=== PATIENT | female | born 1980 | race Caucasian/White ===

== ENCOUNTER 2017-07-08 11:18 | Emergency (ER) | payer MEDICAID ==
[~2017-07-08] VITALS: Ht 170.2 cm; Wt 103.8 kg
[~2017-07-08 11:18] MED LIST: IBUP600 PO; OXYC1SOL5 PO; PRENCAP10 PO; ZOLO50TA PO
[2017-07-08 11:30] VITALS: BP 141/75; PULSE 69; RESP 16; TEMP 97.9; O2SAT 99
[2017-07-08] MEDS ORDERED: SODIUM CHLOR 0.9% 1000 ML INJ 1,000 ML IV SCH (11:43)
[2017-07-08] MEDS ORDERED: ONDANSETRON HCL 4 MG/2 ML VIAL IVP ONE (11:45)
--- NOTE | 2017-07-08 11:46 | PD ---
HPI Chief Complaint: GI Complaint Time Seen by Provider: 11:35 Travel History International Travel<30 days: No Contact w/Intl Traveler<30days: No Traveled to known affect area: No History of Present Illness HPI Examined in the presence of a female nurse. 37-year-old female presents for evaluation of abdominal pain, nausea and vomiting. For the past month she has had intermittent right upper quadrant abdominal pain with associated nausea, discomfort to the right posterior scapular region. She describes it as sharp pain which seems to be worse when eating fatty foods. For example, 2 days ago was her birthday and she consumed a large amount of fatty foods and her pain worsened yesterday. She reports one episode of vomiting yesterday. She reports chronically irregular stools. She reports some dysuria over the past few days. Denies flank pain, fevers, chest pain or shortness of breath. She does report that approximately 10 years ago she was told that she had gallstones. Her primary care physician is Dr. Pardo. No other complaints. [facility] Past Medical History Depression: Yes ?: Not LMP: LAST WEEK Social History Alcohol Use: No Tobacco Use: No Substance Use: No Allergies-Medications (Allergen,Severity, Reaction): Coded Allergies: Sulfa (Sulfonamide Antibiotics) (Unverified Allergy, Mild, NAUSEA, ) erythromycin base (Unverified Allergy, Mild, HIVES, 07/08/17) penicillin G (Unverified Allergy, Mild, HIVES, 07/08/17) Reported Meds & Prescriptions Reported Meds & Active Scripts Active Zofran (Ondansetron HCl) 4 Mg Tab 4 Mg PO Q6HR PRN Review of Systems Except as stated in HPI: all other systems reviewed are Neg Physical Exam Narrative GENERAL: Well-developed well-nourished female in no acute distress SKIN: Warm and dry. HEAD: Atraumatic. Normocephalic. EYES: Pupils equal and round. No scleral icterus. No injection or drainage. ENT: No nasal bleeding or discharge. Mucous membranes pink and moist. NECK: Trachea midline. No JVD. CARDIOVASCULAR: Regular rate and rhythm. No murmur appreciated. RESPIRATORY: No accessory muscle use. Clear to auscultation. Breath sounds equal bilaterally. GASTROINTESTINAL: Abdomen soft, mild right upper quadrant tenderness without guarding, no CVA tenderness MUSCULOSKELETAL: No obvious deformities. No clubbing. No cyanosis. No edema. NEUROLOGICAL: Awake and alert. No obvious cranial nerve deficits. Motor grossly within normal limits. Normal speech. PSYCHIATRIC: Appropriate mood and affect; insight and judgment normal. Data Data Last Documented VS Vital Signs Date Time Temp Pulse Resp B/P (MAP) Pulse Ox O2 Delivery O2 Flow Rate FiO2 07/08/17 12:30 58 18 146/72 (96) 100 Room Air 07/08/17 11:30 97.9 Orders Orders Complete Blood Count With Diff (07/08/17 11:43) Comprehensive Metabolic Panel (07/08/17 11:43) Lipase (07/08/17 11:43) Urinalysis - C+S If Indicated (07/08/17 11:43) Us Abdomen Gallbladder (07/08/17 ) Iv Access Insert/Monitor (07/08/17 11:43) Ondansetron Inj (Zofran Inj) (07/08/17 11:45) Sodium Chlor 0.9% 1000 Ml Inj (Ns 1000 M (07/08/17 11:43) Ed Urine Pregnancytest Poc (07/08/17 11:43) Ed Discharge Order (07/08/17 13:21) Labs Laboratory Tests Test 07/08/17 11:45 07/08/17 11:50 Urine Collection Type CLEAN CATCH Urine Color YELLOW Urine Turbidity CLEAR Urine pH 8.0 Urine Specific Neeses 1.009 Urine Protein NEG mg/dL Urine Glucose (UA) NEG mg/dL Urine Ketones NEG mg/dL Urine Occult Blood NEG Urine Nitrite NEG Urine Bilirubin NEG Urine Leukocyte Esterase NEG Urine Squamous Epithelial Cells 0-5 /hpf Microscopic Urinalysis Comment CULT NOT INDICATED White Blood Count 6.2 TH/MM3 Red Blood Count 5.00 MIL/MM3 Hemoglobin 13.6 GM/DL Hematocrit 40.8 % Mean Corpuscular Volume 81.6 FL Mean Corpuscular Hemoglobin 27.2 PG Mean Corpuscular Hemoglobin Concent 33.4 % Red Cell Distribution Width 12.4 % Platelet Count 254 TH/MM3 Mean Platelet Volume 8.4 FL Neutrophils (%) (Auto) 66.4 % Lymphocytes (%) (Auto) 24.0 % Monocytes (%) (Auto) 6.5 % Eosinophils (%) (Auto) 1.9 % Basophils (%) (Auto) 1.2 % Neutrophils # (Auto) 4.1 TH/MM3 Lymphocytes # (Auto) 1.5 TH/MM3 Monocytes # (Auto) 0.4 TH/MM3 Eosinophils # (Auto) 0.1 TH/MM3 Basophils # (Auto) 0.1 TH/MM3 CBC Comment DIFF FINAL Differential Comment Blood Urea Nitrogen 9 MG/DL Creatinine 0.77 MG/DL Random Glucose 97 MG/DL Total Protein 7.5 GM/DL Albumin 3.9 GM/DL Calcium Level 8.7 MG/DL Alkaline Phosphatase 56 U/L Aspartate Amino Transf (AST/SGOT) 14 U/L Alanine Aminotransferase (ALT/SGPT) 23 U/L Total Bilirubin 0.5 MG/DL Sodium Level 137 MEQ/L Potassium Level 3.7 MEQ/L Chloride Level 102 MEQ/L Carbon Dioxide Level 26.0 MEQ/L Anion Gap 9 MEQ/L Estimat Glomerular Filtration Rate 84 ML/MIN Lipase 208 U/L MDM Medical Decision Making Medical Screen Exam Complete: Yes Emergency Medical Condition: Yes Medical Record Reviewed: Yes Differential Diagnosis Biliary colic, cholecystitis, pyelonephritis, ureteral stone, cystitis, pancreatitis, colitis Narrative Course 37-year-old female with intermittent right upper quadrant abdominal pain, right scapular pain, nausea for the past month. Symptoms seem to be worse with the consumption of fatty foods. On examination she is very mild right upper quadrant/epigastric tenderness. Plan for basic lab work, right upper quadrant ultrasound. She will be given IV fluids, Zofran. Her lab work and imaging studies been reviewed and found to be unremarkable. At this point, the plan would be to discharge the patient with a short course of antiemetics, have her follow up with her primary care physician, likely gastroenterology referral. She is stable for discharge. Diagnosis Primary Impression: Abdominal pain Qualified Codes: R10.9 - Unspecified abdominal pain Additional Instructions: Zofran for nausea. Stay well hydrated well-nourished. Avoid fatty and fried foods. Follow up close with primary care physician. Return for any emergent medical conditions. Med/Other Pt SpecificInfo: Prescription(s) given Scripts Ondansetron (Zofran) 4 Mg Tab 4 MG PO Q6HR Y for NAUSEA OR VOMITING, #20 TAB 0 Refills Prov: Colette Parker MD 07/08/17 Disposition: 01 DISCHARGE HOME Condition: Stable Gabriel Plasencia Jul 08, 2017 11:46
[2017-07-08 11:59] LABS: AUTOMATED NEUTROPHIL # 4.1 TH/MM3 (1.8-7.7); BASOPHIL # 0.1 TH/MM3 (0-0.2); BASOPHIL % 1.2 % (0.0-2.0); EOSINOPHIL # 0.1 TH/MM3 (0-0.4); EOSINOPHIL % 1.9 % (0.0-4.0); HEMATOCRIT 40.8 % (35.0-46.0); HEMO FLAGS DIFF FINAL; LYMPHOCYTE # 1.5 TH/MM3 (1.0-4.8); MEAN CELL VOLUME 81.6 FL (80.0-100.0); MEAN CORPUSCULAR HEMOGLOBIN 27.2 PG (27.0-34.0); MEAN CORPUSCULAR HGB CONC 33.4 % (32.0-36.0); MONO % 6.5 % (0.0-8.0); NEUT % 66.4 % (16.0-70.0); PLATELET COUNT 254 TH/MM3 (150-450); RED CELL DISTRIBUTION WIDTH 12.4 % (11.6-17.2); WHITE BLOOD COUNT 6.2 TH/MM3 (4.0-11.0)
[2017-07-08 11:59] LABS: BLOOD, URINE NEG (NEG); GLUCOSE,URINE NEG (NEG); KETONE, URINE NEG (NEG); NITRITE,URINE NEG (NEG)
[2017-07-08 12:03] LABS: COMMENT (UR) CULT NOT INDICATED; CULTURE IF INDICATED CULT NOT INDICATED; METHOD OF COLLECTION CLEAN CATCH; SQUAMOUS EPITHELIAL CELL URINE 0-5 /hpf (0-5); URINE COLOR YELLOW (YELLW/STRAW)
[2017-07-08 12:09] LABS: CHLORIDE 102 MEQ/L (98-107); POTASSIUM 3.7 MEQ/L (3.5-5.1); SODIUM (NA) 137 MEQ/L (136-145)
[2017-07-08 12:13] LABS: ANION GAP 9 MEQ/L (5-15)
[2017-07-08 12:14] LABS: BLOOD UREA NITROGEN 9 MG/DL (7-18)
[2017-07-08 12:16] LABS: ALT (GPT) 23 U/L (10-53); AST (GOT) 14 U/L (15-37)
[2017-07-08 12:17] LABS: GLOMERULAR FILTRATION RATE 84 ML/MIN (>89)
[2017-07-08 12:18] LABS: TOTAL BILIRUBIN ADULT 0.5 MG/DL (0.2-1.0)
[2017-07-08 12:19] LABS: ALKALINE PHOSPHATASE 56 U/L (45-117)
[2017-07-08 12:30] VITALS: BP 146/72; PULSE 58; RESP 18; O2SAT 100
--- NOTE | 2017-07-08 13:16 | RADRPT ---
EXAM DATE/TIME: 07/08/2017 12:47 [place] COMPARISON: No previous studies available for comparison. INDICATIONS : Right upper quadrant abdominal pain. MEDICAL HISTORY : Nausea and vomiting. Abdominal pain. SURGICAL HISTORY : None. ENCOUNTER: Initial ACUITY: 2 months PAIN SCORE: 4/10 LOCATION: Right upper quadrant MEASUREMENTS: LIVER: 16.4 cm length COMMON DUCT: 4 mm RIGHT KIDNEY: 12.0 x 4.4 x 6.4 cm FINDINGS: LIVER: Normal echotexture without focal lesion or ductal dilatation. COMMON DUCT: No intraluminal mass or stone visualized. GALLBLADDER: Contains no stones, demonstrates no wall thickening or pericholecystic fluid. PANCREAS: The visualized portions are within normal limits. RIGHT KIDNEY: No evidence of hydronephrosis, stone, or mass. CONCLUSION: Normal examination. Juan A Koenig Jr., MD on July 08, 2017 at 13:13 Board Certified Radiologist. This report was verified electronically.
[2017-07-08] MEDS ORDERED: ZOFR4TAB PO (13:22)
== END 2017-07-08 13:50 | disposition home or self-care (01) ==
LOC: PHEFT 11:18
DX: R10.11 Right upper quadrant pain (principal); R11.2 Nausea with vomiting, unspecified; R30.0 Dysuria
CPT/HCPCS: 76705; 80053; 81001; 83690; 84703; 85025; 96361; 96374; 99285; J2405; J7030